=== PATIENT | male | born 1970 ===

== ENCOUNTER 2017-11-03 15:00 | Inpatient (IN) | payer SELFPAY ==
[2017-11-03 16:01] VITALS: BMI 31.4
[2017-11-03] MEDS ORDERED: Heparin 25,000 units/D5W 500 ML IVPB SCH (16:02)
[2017-11-03] MEDS ORDERED: Acetaminophen 325 MG TAB PO PRN (16:02)
[2017-11-03] MEDS ORDERED: Senokot 8.6 MG TAB PO PRN (16:02)
[2017-11-03 16:36] LABS: #Basophils 0.1 thou/uL (0.0-0.2); #Eosinphils 0.2 thou/uL (0.0-0.7); #Lymphocytes 1.7 thou/uL (1.20-3.40); #Monocytes 0.7 thou/uL (0.11-0.59); #Neutrophils 6.1 thou/uL (1.40-6.50); %Basophils 0.7 % (0.0-1.0); %Lymphocytes 19.7 % (21.0-51.0); %Monocytes 7.9 % (0.0-10.0); %Neutrophils 69.6 % (42.0-75.0); Hemoglobin 14.7 g/dL (14.0-18.0); Mean Corpuscular HGB CONC 34.4 g/dL (32.0-36.0); Mean Corpuscular Hemoglobin 31.3 pg (27.0-31.0); Mean Corpuscular Volume 91.1 fL (78.0-98.0); Mean Platelet Volume 7.7 fL (7.4-10.4); Platelet Count 183 thou/uL (130-400); RBC Distribution Width 12.1 % (11.5-14.5); Red Blood Cell (RBC) Count 4.71 mill/uL (4.70-6.10); White Blood Cell (WBC) Count 8.8 thou/uL (4.8-10.8)
[2017-11-03 16:47] LABS: INR-International Normal Ratio 1.1; PTT 49.4 SEC (22.9-36.1); Prothrombin Time 14.6 SEC (12.0-14.7)
[2017-11-03 16:52] LABS: ALT (SGPT) 26 U/L (8-55); AST (SGOT) 16 U/L (5-34); Albumin 3.8 g/dL (3.5-5.0); Alkaline Phosphatase 72 U/L (40-150); Anion Gap 14 mmol/L (10-20); BUN (Urea Nitrogen) 19 mg/dL (8.9-20.6); Bilirubin, Total 0.6 mg/dL (0.2-1.2); Calc. Creatinine Clearance 123 mL/min (70-130); Calcium 8.7 mg/dL (7.8-10.44); Carbon Dioxide 22 mmol/L (22-29); Chloride 106 mmol/L (98-107); Estimated GFR-MDRD 72; Globulin 2.7 g/dL (2.4-3.5); Glucose 89 mg/dL (70-105); Potassium 3.8 mmol/L (3.5-5.1); Protein, Total 6.5 g/dL (6.0-8.3); Sodium 138 mmol/L (136-145)
[2017-11-03 17:08] LABS: D-Dimer Test Greater than 20.00 *mcg/mL (0.27-0.43)
[2017-11-03] MEDS: Sodium Chloride 0.9% 1,000 ML IV SCH (17:51)
[2017-11-03] MEDS: Heparin 10,000 UNITS/ 10 ML VIAL SLOW IVP SCH (18:12)
--- NOTE | 2017-11-03 20:48 | HP ---
REASON FOR ADMISSION: PE. HISTORY OF PRESENT ILLNESS: The patient gives history of his left calf area aching from last 1 week or so. He also felt it to be warm. This happened last Sunday. Yesterday, he was in [place] and developed shortness of breath. Again , this morning at his hotel room, the patient was getting short of breath after he woke up and started to move around. He thought he will take a shower and feel better, but had no relief after that. He is from [place] and is on a business visit here. No complaints of chest pain, palpitation, PND or orthopnea. The patient went to [facility] on [facility] and has had multiple workups done including CT angio chest done, which shows pulmonary embolus. PAST MEDICAL AND SURGICAL HISTORY: Has had hernia repair, vasectomy, surgery on his nose. CURRENT MEDICATIONS: None. ALLERGIES: No known drug allergies. PERSONAL HISTORY: Does not abuse alcohol or drugs. No history of smoking. He lives alone, works in a refinery business. He ambulates by himself. The patient states he is very active. FAMILY HISTORY: Father in a boating accident when the patient was very young. Mother has history of hypertension and is living. CODE STATUS: FULL. Power of ip attorney is his brother. REVIEW OF SYSTEMS: The following complete review of systems was negative, unless otherwise mentioned in the HPI or below: Constitutional: Weight loss or gain, ability to conduct usual activities. Skin: Rash, itching. Eyes: Double vision, pain. ENT/Mouth: Nose bleeding, neck stiffness, pain, tenderness. Cardiovascular: Palpitations, dyspnea on exertion, orthopnea. Respiratory: Shortness of breath, wheezing, cough, hemoptysis, fever or night sweats. Gastrointestinal: Poor appetite, abdominal pain, heartburn, nausea, vomiting, constipation, or diarrhea. Genitourinary: Urgency, frequency, dysuria, nocturia. Musculoskeletal: Pain, swelling. Neurologic/Psychiatric: Anxiety, depression. Allergy/Immunologic: Skin rash, bleeding tendency. PHYSICAL EXAMINATION: GENERAL: The patient is a 47-year-old male who is currently on a nonrebreather. VITAL SIGNS: Blood pressure is 134/96, pulse 88 per minute, respiratory rate 20 per minute, temperature 97.7 degrees Fahrenheit, saturating 100% on a nonrebreather. NECK: Supple, no elevated JVD. EYES: Extraocular muscles intact. Pupils reacting to light. Oral cavity, mucous membranes are moist. No exudates or congestion. CARDIOVASCULAR: S1, S2 heard. Regular rhythm. RESPIRATORY: Air entry 2+ bilateral. No rales or rhonchi. ABDOMEN: Soft, bowel sounds heard. No tenderness, rigidity or guarding. EXTREMITIES: No peripheral edema or calf tenderness. VASCULAR SYSTEM: Peripheral pulses 1+ bilateral, no ischemic ulcerations or gangrene. CENTRAL NERVOUS SYSTEM: No gross focal deficits noted. The patient is alert, awake, oriented well. PSYCHIATRIC: The patient's mood is euthymic. No hallucinations or delusions. LABORATORY AND X-RAY FINDINGS: Please note all his labs are done at [facility] and has a white count of 12, H and H is 14 and 43, platelet count is 211, BNP was 135, MCV was 86, albumin is 3.6, ALT 27, AST 39, T-bili 0.7, BUN 18, creatinine 1.2. Sodium 135, potassium 4.5, chloride 106, bicarbonate is 23. CK level 76. CT angio chest done at [facility] shows extensive bilateral pulmonary emboli with a largest embolus involving the right main pulmonary artery with near complete occlusion of that artery. There is no evidence of RV dysfunction. Signs of hepatic steatosis, multiple hepatic cysts and gastric distention seen on the CAT scan. EKG done shows sinus tachycardia around 96 beats per minute. There are T inversions seen in V2, V3, V4, V5, V6. CLINICAL IMPRESSION AND PLAN: The patient will be admitted to [facility] for bilateral PE. He has received 5000 units of bolus heparin at [facility] and is currently on 1000 units per hour IV and will continue the same for now. He is currently on a nonrebreather. I have tried to wean him off the nonrebreather , but the patient desaturates quite easily and has been placed back on it for now. Discussed his CAT scan findings and clinical findings with Dr. Powell who is on-call for Pulmonology. I have also discussed with Dr. Powell with regards to TPA and he does not have an indication at present as his blood pressure is in the 130s. The patient does not have any prolonged travel except for 3-hour travels that he has had in the recent past. He is actually active in life per family and himself. No obvious malignant history in the family or in the patient himself. He has not had any screening colonoscopies or cardiac workup including stress test in the past. We will obtain echo with 2D Doppler for LV function and to look for RV strain. Likely, the patient might have left lower extremity thrombus in view of his pain and we will obtain ultrasound venous Doppler. A thrombosis panel will also be obtained. The patient does mention that he was working in the sun and got dehydrated. This might have contributed with his 3-hour travel plans for a DVT and PE. We will continue to closely monitor him in IM. I have discussed code status with him and he is a FULL CODE. EVA
[2017-11-03] MEDS: Famotidine 20 MG TAB PO SCH (20:52)
[2017-11-03 20:57] LABS: Bilirubin Negative (Negative); Blood, Urine Moderate (Negative); Clarity CLEAR (Clear); Glucose, Urine (Dipstick) Negative (Negative); Leukocyte Trace (Negative); Nitrite Negative (Negative); Protein, Urine (Dipstick) 30 mg/dL (Neg-Trace); Specific Gravity, Urine 1.044 (1.002-1.036); Urobilinogen 0.2 mg/dL (0.2-1.0)
[2017-11-03 20:58] LABS: Bacteria/HPF None Seen HPF (None Seen); Hyaline Casts/LPF 4-6 HYALINE CAST LPF (0-3 Hyaline); Pathc Cast-AUWi Flag 0.43 (0-2.49); Squamous Epithelial 0-3 HPF (0-3)
[2017-11-04 04:19] LABS: #Eosinphils 0.3 thou/uL (0.0-0.7); #Lymphocytes 2.1 thou/uL (1.20-3.40); #Monocytes 0.7 thou/uL (0.11-0.59); #Neutrophils 5.6 thou/uL (1.40-6.50); %Basophils 0.3 % (0.0-1.0); %Eosinophils 3.4 % (0.0-10.0); %Lymphocytes 23.7 % (21.0-51.0); %Neutrophils 64.6 % (42.0-75.0); Hemoglobin 14.2 g/dL (14.0-18.0); Mean Corpuscular HGB CONC 34.1 g/dL (32.0-36.0); Mean Corpuscular Hemoglobin 31.2 pg (27.0-31.0); Mean Corpuscular Volume 91.4 fL (78.0-98.0); Mean Platelet Volume 7.8 fL (7.4-10.4); Platelet Count 194 thou/uL (130-400); RBC Distribution Width 12.1 % (11.5-14.5); Red Blood Cell (RBC) Count 4.54 mill/uL (4.70-6.10); White Blood Cell (WBC) Count 8.7 thou/uL (4.8-10.8)
[2017-11-04 04:27] LABS: Anion Gap 11 mmol/L (10-20); BUN (Urea Nitrogen) 14 mg/dL (8.9-20.6); Calc. Creatinine Clearance 144 mL/min (70-130); Calcium 8.3 mg/dL (7.8-10.44); Carbon Dioxide 22 mmol/L (22-29); Chloride 107 mmol/L (98-107); Estimated GFR-MDRD 87; Glucose 99 mg/dL (70-105); Sodium 136 mmol/L (136-145)
[2017-11-04] MEDS: Sodium Chloride 0.9% 1,000 ML IV SCH ×2 (04:27→17:52)
[2017-11-04] MEDS: Heparin 10,000 UNITS/ 10 ML VIAL SLOW IVP SCH (05:10)
[2017-11-04] MEDS: Famotidine 20 MG TAB PO SCH ×2 (08:44→21:41)
[2017-11-04] MEDS ORDERED: Enoxaparin Sodium 100 MG/ML SYRINGE SC SCH ×2 (11:00→21:00)
--- NOTE | 2017-11-04 12:06 | ULT ---
BILATERAL LOWER EXTREMITY VENOUS ULTRASOUND WITH DOPPLER: HISTORY: The patient has known PE. Evaluate for thrombus. COMPARISON: None. TECHNIQUE: Rose scale, color flow, Doppler imaging with spectral waveform analysis was performed of the right an d left lower extremity systems. FINDINGS: RIGHT LOWER EXTREMITY: There is compressibility, presence of flow, and augmentation of the common femoral vein, femoral vein , and popliteal vein. There is flow in the greater saphenous vein, profunda vein, and posterior tibi al and anterior tibial veins. LEFT LOWER EXTREMITY: There is compressibility, presence of flow, and augmentation in the common femoral vein, and femoral vein. There is echogenic material with partial flow in the popliteal vein. There is flow in the gre ater saphenous vein and profunda vein. There is thrombus in the posterior tibial vein and peroneal v ein. Anterior tibial vein has flow. IMPRESSION: Thrombus involving the left lower extremity deep venous system. POS: STARLA
--- NOTE | 2017-11-04 13:14 | PDOC.PN ---
- Subjective Encounter Start Date: 11/04/17 Encounter Start Time: 11:45 Subjective: no sob or chest pain -: is on room air this am -: is seen amb to rest room and back - Objective Resuscitation Status: Resuscitation Status FULL:Full Resuscitation MAR Reviewed: Yes Vital Signs & Weight: Vital Signs (12 hours) Temp Pulse Resp BP Pulse Ox 11/04/17 12:45 97.6 F 76 18 143/99 H 99 11/04/17 07:48 97.8 F 82 20 100 11/04/17 07:28 97.8 F 82 20 138/95 H 100 11/04/17 03:44 97.9 F 72 16 120/83 100 Weight Weight 231 lb 7.766 oz Result Diagrams: 11/04/17 03:30 11/04/17 03:30 Phys Exam - Physical Examination HEENT: PERRLA, moist MMs Neck: no JVD, supple Respiratory: no wheezing, no rales Cardiovascular: RRR, no significant murmur Gastrointestinal: soft, non-tender, positive bowel sounds Musculoskeletal: no edema, pulses present Neurological: non-focal, moves all 4 limbs Psychiatric: normal affect, A&O x 3 Dx/Plan (1) Pulmonary embolus Code(s): I26.99 - OTHER PULMONARY EMBOLISM WITHOUT ACUTE COR PULMONALE Status : Acute Qualifiers: Pulmonary embolism type: other Chronicity: acute (2) DVT (deep venous thrombosis) Code(s): I82.409 - ACUTE EMBOLISM AND THOMBOS UNSP DEEP VN UNSP LOWER EXTREMITY Status: Acute Qualifiers: DVT location: lower extremity Chronicity: acute Laterality: left (3) Obesity (BMI 30.0-34.9) Code(s): E66.9 - OBESITY, UNSPECIFIED Status: Chronic - Plan is on heparin drip, will switch to lovenox -: await echo results -: hypoxia has resolved, still tachycardic -: d/w pt, brother and son at bedside -: to ambulate in hallway as tolerated * .
--- NOTE | 2017-11-04 23:01 | CON ---
Artur Wnog is a pleasant 47-year-old male in the area for [employer]. He developed leg discomfort for the last few days and then started having shortness of breath in the last few days. He was transferred over here after presenting to a freestanding ER and now being diagnosed with pulmo nary emboli. It is not really clear to me what was done from an intervention or an imaging standpoin t. We could not view the images here. He came over on nonrebreather. He is on room air now. Report that came with him states that he had a mainstem pulmonary artery embolus on the right. He was not tachycardic. He was not hypertensive. He has been on a heparin drip all night. PAST MEDICAL HISTORY: Remarkable for having herniorrhaphy, vasectomy. SOCIAL HISTORY: Non-smoker, nondrinker. Father when he was young in a boating accident. Mother has hypertension as well as histo ry of hypercoagulable state. His brother was in the room with him. REVIEW OF SYSTEMS: 10 points otherwise negative. Actually, he states he feels almost normal now. PHYSICAL EXAMINATION: VITAL SIGNS: He is afebrile. Heart rate in the 80s. Respiratory rate is 20, oximetry is 100% on ro om air. Blood pressure 138/95. HEENT: Pupils are equal. Sclerae is anicteric. NECK: Supple. LUNGS: Clear. HEART: Regular rhythm, no S3, no S4. ABDOMEN: Soft and nontender. EXTREMITIES: No clubbing, cyanosis, or edema. Doppler venogram shows partial flow in the popliteal vein suggesting residual clot and visualized tibial vein and peroneal vein. IMPRESSION: Thromboembolic disease. Thrombosis panel was ordered, although it is unlikely at level of hypercoagulable state given that he is 47 years of age. His heparin drip was stopped this morning. He was given Lovenox 1 mg/kg to start this morning. He w ill take 2 doses of that. I have asked the nurse to contact local pharmacy to see which new oral ant icoagulant is covered by [facility] and then we will probably start this in the morning if we can identify this. He can have his Lovenox in the morning, we can prescribe this and then he can fi ll the prescription once he gets home and start in the evening. I will see him back in [place] tomorrow. PT needs to be a hospital to hospital transfer given his r apid clinical improvement.
[2017-11-05 04:04] VITALS: TEMP 98.2
[2017-11-05] MEDS: Sodium Chloride 0.9% 1,000 ML IV SCH (04:36)
--- NOTE | 2017-11-05 06:51 | PRG ---
DATE OF SERVICE: 11/05/2017 Mr. Wong had a great night. He said he slept well. He denies shortness of breath. He denies le g discomfort. PHYSICAL EXAMINATION: VITAL SIGNS: He is afebrile, heart rate 74, respiratory rate is 18, oximetry is 95, blood pressure 1 27/93. LUNGS: Lungs are clear. HEART: Regular rhythm, no gallop. ABDOMEN: Soft. EXTREMITIES: Extremities are not swollen. IMPRESSION: Thromboembolic disease, probably triggered by multiple trips in a car. Thrombosis panel is pending. He lives in [place] so they will have to send for medical records. We could not figure out which drug is covered by [facility] so I have written a prescription f or Eliquis. He will take 10 mg twice a day for a week and then go to 5 mg twice a day. Prescription was written. 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 He will need to be managed with one of the three newer oral anticoagulants and not warfarin. I would not start him on warfarin as an ou tpatient unless he is on Lovenox for 7-10 days as a bridge. Copies of his medical records should go with him. He had brought a disk of his CAT scan which should go with them as well. I asked for it t o be loaded in the [facility] system here, but they were unable to load it from what I was told. 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 He is driving back to [place] this afternoon. He i s stable to be discharged around lunch time in my opinion.
[2017-11-05 08:00] VITALS: BP 146/95
[2017-11-05] MEDS ORDERED: Enoxaparin Sodium 120 MG/0.8 ML SYRINGE SC SCH (09:00)
[2017-11-05] MEDS ORDERED: Enoxaparin Sodium 30 MG/0.3 ML SYRINGE SC SCH (09:00)
[2017-11-05] MEDS: Famotidine 20 MG TAB PO SCH (09:07)
--- NOTE | 2017-11-05 11:50 | PDOC.PN ---
- Subjective Encounter Start Date: 11/05/17 Encounter Start Time: 07:45 Subjective: no chest pain or palp -: is amb in room, on room air - Objective Resuscitation Status: Resuscitation Status FULL:Full Resuscitation MAR Reviewed: Yes Vital Signs & Weight: Vital Signs (12 hours) Temp Pulse Resp BP Pulse Ox 11/05/17 08:00 98.2 F 77 20 11/05/17 07:59 98.2 F 77 146/95 H 99 11/05/17 04:01 98.2 F 74 18 127/93 H 95 11/05/17 03:02 96 11/04/17 23:56 98.9 F 76 18 135/82 95 Weight Weight 231 lb 7.766 oz I&O: 11/04/17 11/05/17 11/06/17 06:59 06:59 06:59 Intake Total 2763 Output Total 1150 Balance 1613 Result Diagrams: 11/04/17 03:30 11/04/17 03:30 Phys Exam - Physical Examination HEENT: PERRLA, moist MMs Neck: no JVD, supple Respiratory: no wheezing, no rales Cardiovascular: RRR, no significant murmur Gastrointestinal: soft, non-tender, positive bowel sounds Musculoskeletal: no edema, pulses present Neurological: non-focal, moves all 4 limbs Psychiatric: normal affect, A&O x 3 Dx/Plan (1) Pulmonary embolus Code(s): I26.99 - OTHER PULMONARY EMBOLISM WITHOUT ACUTE COR PULMONALE Status : Acute Qualifiers: Pulmonary embolism type: other Chronicity: acute (2) DVT (deep venous thrombosis) Code(s): I82.409 - ACUTE EMBOLISM AND THOMBOS UNSP DEEP VN UNSP LOWER EXTREMITY Status: Acute Qualifiers: DVT location: lower extremity Chronicity: acute Laterality: left (3) Obesity (BMI 30.0-34.9) Code(s): E66.9 - OBESITY, UNSPECIFIED Status: Chronic - Plan hemostable -: got a higher single dose of lovenox this am -: to start eliquis per 's advice -: may dc home per Pulm advice * .
[2017-11-05 16:07] LABS: Protein C Activity 84 % (78-152)
[2017-11-05 16:26] LABS: HEX PHOS LA Tube 1 57.9 SEC; Hexagonal Phospholipid Neut 0.9 SEC (0-8.0)
--- NOTE | 2017-11-05 22:50 | DIS ---
DATE OF ADMISSION: 11/03/2017 DATE OF DISCHARGE: 11/05/2017 DISCHARGE DISPOSITION: To home. PRIMARY DISCHARGE DIAGNOSES: Pulmonary embolus, left lower extremity deep venous thrombosis. PROCEDURES DONE DURING HOSPITALIZATION: Patient had ultrasound venous Doppler of lower extremities done which showed thrombus in left lower extremity. The thrombus was seen in the posterior tibial vein and peroneal vein. Echogenic material with partial flow was also seen in the popliteal vein. Echo with 2D Doppler showed EF of 50% to 55%, moderately enlarged right atrium and right ventricular cavity was seen. Ejection fraction was 50% to 55%. LABORATORY DATA: H&H 14 and 41, platelet count 194 with white count of 8. A thrombosis panel is pending at present. BUN 14, creatinine 0.9. INPATIENT CONSULTS: Dr. Powell for pulmonology. DISCHARGE MEDICATIONS: Eliquis 10 mg twice daily for 7 days, then 5 mg twice daily, thereafter. ALLERGIES: No known drug allergies. DISCHARGE PLAN: Patient to follow up with primary care physician in 1 week. BRIEF COURSE DURING HOSPITALIZATION: Patient initially got admitted for pulmonary embolus. He had developed shortness of breath and left leg pain. He had gone to [facility] ER and has had a CT angio chest done, which showed extensive bilateral PE with largest thrombus involving right main pulmonary artery with near complete occlusion. His ultrasound venous Doppler done here showed left lower extremity DVT as well. Patient initially was placed on heparin. He was also hypoxic and was on nonrebreather on arrival here. His oxygen requirements completely resolved and is on room air at the time of discharge. He is also ambulating well and has no chest pain or exertional dyspnea at present. Patient was transitioned to Lovenox and then he needs to start Eliquis from tomorrow. His prescription for Eliquis has been obtained by family and is being cleared for discharge by Dr. Powell, highway research engineer. Echo done here did not reveal any thrombus. He is hemodynamically stable and will be shortly discharged home. Patient needs to closely follow up with his primary care physician in 1 week. Please see a [id number] documentation on [employer] for the day of discharge. [facility]
[2017-11-07 13:44] LABS: Cardiolipin IgA Ab 4.1 APL-U/mL (<14 Negative); Cardiolipin IgG Ab 0.8 GPL-U/mL (<10 Negative); Cardiolipin IgM Ab Less than 0.8 MPL-U/mL (<10 Negative); EliA APS New Method **** NEW METHOD ****
[2017-11-07 16:27] LABS: Factor VIII Test 222.4 % ACTIVE (56-157)
== END 2017-11-05 11:21 | disposition home or self-care (01) | DRG 176 ==
LOC: IMCU/EMU 15:00
PROVIDERS: ADMIT Internal Medicine; ATTEND Internal Medicine
PROC: B50DYZZ Plain Radiography of Bilateral Lower Extremity Veins using Other Contrast (ICD-10-PCS; principal; 2017-11-04)
DX: I26.99 Other pulmonary embolism without acute cor pulmonale (principal); I82.402 Acute embolism and thrombosis of unspecified deep veins of left lower extremity; E66.9 Obesity, unspecified; Z68.31 Body mass index [BMI] 31.0-31.9, adult
CPT/HCPCS: 36415; 80048; 80053; 81001; 81240; 81241; 83090; 85025; 85240; 85300; 85303; 85305; 85307; 85379; 85598; 85610; 85730; 86147; 93306; 93970; J1644; J1650